=== PATIENT | male | born 1990 | race Two or more races ===

== ENCOUNTER → 2017-07-20 | Emergency (ER) | payer OTHER ==
[~2017-07-20] VITALS: Ht 162.6 cm; Wt 63.5 kg
== END | disposition home or self-care (01) ==
LOC: ER 09:59
DX: B34.9 Viral infection, unspecified (principal)

== ENCOUNTER 2018-11-07 09:03 | Emergency (ER) | payer OTHER ==
[~2018-11-07] VITALS: Ht 160 cm; Wt 62.6 kg
== END 2018-11-07 12:33 | disposition home or self-care (01) ==
LOC: ER 09:03
DX: J32.0 Chronic maxillary sinusitis (principal); J06.9 Acute upper respiratory infection, unspecified

== ENCOUNTER 2018-11-13 10:20 | Emergency (ER) | payer OTHER ==
[~2018-11-13] VITALS: Ht 160 cm; Wt 62.6 kg
== END 2018-11-13 15:59 | disposition home or self-care (01) ==
LOC: ER 10:20
DX: R10.32 Left lower quadrant pain (principal)

== ENCOUNTER 2022-02-25 16:43 | Emergency (ER) | payer OTHER ==
[~2022-02-25] VITALS: Ht 160 cm; Wt 69.4 kg
== END 2022-02-25 20:57 | disposition home or self-care (01) ==
LOC: ER 16:43 → EMR PED 16:49 → ER 16:49
DX: R10.11 Right upper quadrant pain (principal)